=== PATIENT | male | born 1940 | race Caucasian/White ===

== ENCOUNTER 2022-01-01 07:54 | Day surgery (SDC) | payer OTHER ==
[~2022-01-01] VITALS: Ht 177.8 cm; Wt 87.0 kg
[~2022-01-01 07:54] MED LIST: AMIO200 PO; ASPI325 PO; ASPI81CH; ATOR20 PO; CETI5; CLOP75 PO; METO25ER PO; Naprosyn500 MG PO; Percocet 5-3251 EACH PO; SILD25T PO; TADA10TA; Valium5 MG PO; Vitamin C500 M3 PO; Vitamin D2000 UNIT PO
[2022-01-01] MEDS ORDERED: ELIQUIS5 M2 PO (08:20)
[2022-01-01] MEDS ORDERED: PACERONE100 M1 PO (08:20)
[2022-01-01] MEDS ORDERED: LOSA25 PO (08:21)
[2022-01-01] MEDS ORDERED: PRESERVISION A1 EAC1 PO (08:21)
--- NOTE | 2022-01-01 09:36 | NUR ---
0915 DR. METZ TO THE BEDSIDE AND SPOKE TO THE THE PATIENT AND HIS PRE OP.
--- NOTE | 2022-01-01 10:37 | NUR ---
PATIENT RETURNED FROM THE CHIEF INVESTMENT OFFICER IN A RECLINER AND PLACED ON THE MONITOR. CALL LIGHT IN REACH. AT THE BEDSIDE. TR BAND IN PLACE TO THE RIGHT RADIAL WITH 10 ML OF AIR IN THE BAND. BREAKFAST TRAY SERVED. PATIENT HAS NO PAIN, NO BLEEDING AND NO HEMATOMA TO THE RIGT RADIAL SITE.
--- NOTE | 2022-01-01 11:54 | NUR ---
1145 BEGAN REMOVING AIR FROM THE TR BAND. NO BLEEDING NOTED. NO HEMATOMA NOTED. CONTINUE TO MONITOR.
--- NOTE | 2022-01-01 13:00 | NUR ---
PATIENTS TR BAND HAS BEEN FLAT FOR 35 MINUTES. PATIENT UP OOB TO THE RESTROOM. NO BLEEDING NOTED. PATIENT BACK TO THE BEDSIDE ANDDRESSED. REVIEWED DISCHARGE INSTRUCTIONS WITH THE PATIENT AND . COPIES GIVEN. PATIENT WILL RESUME ELIQUIS TOMORROW INSTRUCTED AND FOLLOW UP APPOINTMENT WITH DR. ESPINOZA ON . PIV REMOVED. CATH TIP INTACT. PRESSURE DRESSING APPLIED. NO DIZZINESS NOTED. 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 DISCHARGE WITH ALL BELONINGS VIA WHEELCHAIR.
== END 2022-01-01 12:30 | disposition home or self-care (01) ==
LOC: MHTC 07:54
DX: I25.10 Atherosclerotic heart disease of native coronary artery without angina pectoris (principal); I25.5 Ischemic cardiomyopathy; I47.2 Ventricular tachycardia; I47.1 Supraventricular tachycardia; E78.5 Hyperlipidemia, unspecified; E66.3 Overweight; J44.9 Chronic obstructive pulmonary disease, unspecified; I45.10 Unspecified right bundle-branch block; I11.0 Hypertensive heart disease with heart failure; I50.20 Unspecified systolic (congestive) heart failure; Z79.01 Long term (current) use of anticoagulants; Z87.891 Personal history of nicotine dependence
CPT/HCPCS: 76937; 93454; 99152; 99153; A9270; C1769; C1887; C1894; J1644; J2250; J3010; J7030; J7040; Q9967

== ENCOUNTER 2022-11-15 16:44 | Inpatient (IN) | payer OTHER ==
[~2022-11-15] VITALS: Ht 177.8 cm; Wt 82.9 kg
[~2022-11-15 16:44] MED LIST changes: -CETI5; +CETI5 PO; +ELIQUIS5 M2 PO; +LOSA25 PO; +PACERONE100 M1 PO; +PRESERVISION A1 EAC1 PO
[2022-11-15 17:19] LABS: Hematocrit 39.6 % (37.0-53.0); Hemoglobin 14.1 g/dL (13.5-17.5); Mean Corpuscular HGB 31.2 pg (26.0-34.0); Mean Corpuscular HGB Conc 35.6 g/dL (31.5-36.5); Mean Corpuscular Volume 88 fL (80-100); Mean Platelet Volume 8.8 fL (9.1-12.4); Platelet Count 462 K/mm3 (150-400); RDW Coefficient Variation 13.1 % (11.7-14.2); RDW Standard Deviation 42.5 fL (35.1-46.3); Red Blood Cell Count 4.52 M/mm3 (4.30-5.90); White Blood Cell Count 11.58 K/mm3 (4.00-11.30)
[2022-11-15 17:36] LABS: Albumin, Blood 2.8 g/dL (3.4-5.0); Albumin/Globulin Ratio 0.6 (0.8-1.8); Bilirubin, Total 0.6 mg/dL (0.1-1.0); Bun/Creatinine Ratio 29.1 (12.0-20.0); Calcium, Blood 8.8 mg/dL (8.5-10.1); Creatinine, Blood 1.89 mg/dL (0.60-1.20); Globulin, Blood 4.5 g/dL (2.2-4.0); Potassium, Blood 2.5 mmol/L (3.5-5.5); Total Protein, Blood 7.3 g/dL (6.4-8.2)
[2022-11-15 17:50] LABS: BAND PERCENT MAN 67 % (0-8); BASOPHILS PERCENT MAN 0 % (0-2); EOSINOPHILS ABSOLUTE MAN 0.11 K/mm3 (0.00-0.68); EOSINOPHILS PERCENT MAN 1 % (0-6); LYMPHOCYTES ABSOLUTE MAN 0.23 K/mm3 (0.84-5.20); LYMPHOCYTES PERCENT MAN 2 % (21-46); METAMYELOCYTE ABSOLUTE MAN 0.11 K/mm3 (0.00-0.00); METAMYELOCYTE PERCENT MAN 1 % (0-0); MONOCYTES ABSOLUTE MAN 1.38 K/mm3 (0.16-1.47); MONOCYTES PERCENT MAN 12 % (4-13); NEUTROPHILS ABSOLUTE MAN 9.72 K/mm3 (1.96-9.15); SEG NEUTROPHILS PERCENT MAN 17 % (41-73); TOTAL CELLS COUNTED 100
[2022-11-15 20:47] VITALS: BP 107/57
[2022-11-15] MEDS ORDERED: FINA5 PO (20:56)
[2022-11-16] VITALS (7 sets, daily range): BP systolic 98–111; BP diastolic 54–61
[2022-11-16 01:13] LABS: Stool Occult Blood Guaiac 1 Pos (Neg)
[2022-11-16 01:54] LABS: Campylobacter Sp Not Detected (NOT DETECT)
[2022-11-16 01:55] LABS: Adenovirus F 40/41 Not Detected (NOT DETECT); Astrovirus Not Detected (NOT DETECT); Cryptosporidium Not Detected (NOT DETECT); Cyclospora Cayetanensis Not Detected (NOT DETECT); E. Coli O157 Not Detected (NOT DETECT); Entamoeba Histolytica Not Detected (NOT DETECT); Enteroaggregative E. coli-EAEC Not Detected (NOT DETECT); Enteropathogenic E. coli-EPEC Not Detected (NOT DETECT); Enterotoxigenic E. coli-ETEC Not Detected (NOT DETECT); Giardia Lamblia Not Detected (NOT DETECT); Norovirus GI/GII Not Detected (NOT DETECT); Plesiomonas Shigelloides Not Detected (NOT DETECT); Rotavirus A Not Detected (NOT DETECT); Salmonella Sp Not Detected (NOT DETECT); Sapovirus Not Detected (NOT DETECT); Shiga Toxin-prod E. coli-STEC Not Detected (NOT DETECT); Shigella/Enteroin E. coli-EIEC Not Detected (NOT DETECT); Vibrio Cholerae Not Detected (NOT DETECT); Vibrio Sp Not Detected (NOT DETECT); Yersinia Enterocolitica Not Detected (NOT DETECT)
[2022-11-16 03:44] LABS: Hematocrit 35.7 % (37.0-53.0); Hemoglobin 12.5 g/dL (13.5-17.5); Mean Corpuscular HGB 31.3 pg (26.0-34.0); Mean Corpuscular Volume 90 fL (80-100); Mean Platelet Volume 8.9 fL (9.1-12.4); Platelet Count 373 K/mm3 (150-400); RDW Coefficient Variation 13.1 % (11.7-14.2); RDW Standard Deviation 43.3 fL (35.1-46.3); Red Blood Cell Count 3.99 M/mm3 (4.30-5.90); White Blood Cell Count 12.23 K/mm3 (4.00-11.30)
[2022-11-16 04:01] LABS: Albumin, Blood 2.3 g/dL (3.4-5.0); Albumin/Globulin Ratio 0.6 (0.8-1.8); Bilirubin, Total 0.4 mg/dL (0.1-1.0); Bun/Creatinine Ratio 31.3 (12.0-20.0); Calcium, Blood 8.2 mg/dL (8.5-10.1); Creatinine, Blood 1.79 mg/dL (0.60-1.20); Globulin, Blood 3.7 g/dL (2.2-4.0); Potassium, Blood 2.6 mmol/L (3.5-5.5)
[2022-11-16 04:47] LABS: BAND PERCENT MAN 43 % (0-8); BASOPHILS PERCENT MAN 0 % (0-2); EOSINOPHILS PERCENT MAN 0 % (0-6); LYMPHOCYTES ABSOLUTE MAN 0.24 K/mm3 (0.84-5.20); LYMPHOCYTES PERCENT MAN 2 % (21-46); MONOCYTES ABSOLUTE MAN 2.07 K/mm3 (0.16-1.47); MONOCYTES PERCENT MAN 17 % (4-13); NEUTROPHILS ABSOLUTE MAN 9.78 K/mm3 (1.96-9.15); PLASMA CELL ABSOLUTE MAN 0.12 K/mm3 (0.00-0.00); PLASMA CELLS PERCENT MAN 1 % (0-0); SEG NEUTROPHILS PERCENT MAN 37 % (41-73); TOTAL CELLS COUNTED 100
--- NOTE | 2022-11-16 05:20 | NUR ---
SHIFT SUMMARY ASSUMED CARE OF PT AT 2030. PT IS A/OX4. [place]. HEART SOUNDS REGULAR. PT HAS A PACER. LUNG SOUNDS CLEAR. PT STILL HAVING DIARRHEA. PT A 1P SBA FOR LINE CONTROL. NO ACUTE EVENTS, PT SLEPT MOST OF THE NOC. PT EDUCATED ABOUT HOSPITAL SMOKING POLICY.
--- NOTE | 2022-11-16 09:31 | NUR ---
AM NOTES: PT C/O NAUSEA THIS MORNING AT SHIFT CHANGE PT STATED TESS HELPED WITH HIS NAUSEA DIDNT EAT MUCH FOR BREAKFAST, ABLE TO KEEP MEDS DOWN. POTASSIUM 3RD BAG NOW INFUSING ALONG WITH LR AT 150 MLS/HR. PT STILL REPORTS HAVING DIARRHEA, NO OBVIOUS BLOOD IN THE STOOL PER NOC RN HEM OCCULT CAME BACK POSITIVE ALSO DISCUSSED WITH THE PROVIDER SINCE PT WAS ALSO ON BLOOD THINNER, OKAY TO GIVE ELIQUIS AND TO MONITOR POSS GI BLEED. DAUGHTER ROS CALLED AND WAS GIVEN AN UPDATE ABOUT THE PT. TO ORDER RENAL FUNCTION PANEL AFTER POTASSIUM INFUSION IS DONE. VITALS HRR PACED AT 60'S, SBP 100'S, SATS ABOVE 95% ON RA, AFEBRILE. PT DENIES CHEST PAIN/PRESSURE. NO OTHER ISSUES OF THIS TIME. PT CURRENTLY GETTING IN THE SHOWER. WILL CONTINUE TO MONITOR
[2022-11-16 13:55] LABS: Albumin, Blood 2.2 g/dL (3.4-5.0); Anion Gap 9 mmol/L (6-16); Blood Urea Nitrogen 53 mg/dL (8-24); Bun/Creatinine Ratio 36.3 (12.0-20.0); CO2, Blood 19 mmol/L (21-32); Calcium, Blood 8.3 mg/dL (8.5-10.1); Chloride, Blood 109 mmol/L (98-108); Creatinine, Blood 1.46 mg/dL (0.60-1.20); Glomerular Filtration Rate 47 (60-); Glucose, Blood 153 mg/dL (70-99); Phosphorus, Blood 0.9 mg/dL (2.5-4.9); Sodium, Blood 137 mmol/L (136-145)
--- NOTE | 2022-11-16 18:32 | NUR ---
PT SUMMARY: SEE AM NOTES. REPEAT RENAL FUNCTION PANEL RESULT CAME BACK WITH POTASSIUM AT 3.0 AND CRITICALLY LOW PHOSPHORUS AT 0.9 CALLED INTO PROVIDER AND GOT AN ORDER FOR KPHOS 30MMOL X1 IV GTT STILL INFUSING AT THIS TIME ALONG WITH LR AT 150MLS/HR. DISCUSSED WITH FAMILY AT THE BEDSIDE ABOUT PLAN OF CARE THAT PT IS NOT DISCHARGING TODAY WILL REASSESS TOMORROW. VITALS HAS BEEN STABLE. PT DENIES ANY PAIN/PRESSURE. MILD NAUSEA RELIEVED BY POPSICLE AND PT STARTING TO TOLERATE PO INTAKE. NO EMESIS REPORTED. HAD COUPLE EPISODES OF DIARRHEA GREEN BROWN IN COLOR NO BLOODY STOOLS NOTED. PT HAS BEEN AMBULATING TO THE BATHROOM. NO OTHER ISSUES ENCOUNTERED AT THIS TIME, WILL REPORT TO ONCOMING SHIFT. PT EDUCATED ABOUT IGNITION SOURCES, RISK OF INJURY AND SMOKING POLICY.
[2022-11-16 20:30] LABS: Albumin, Blood 2.2 g/dL (3.4-5.0); Anion Gap 9 mmol/L (6-16); Blood Urea Nitrogen 47 mg/dL (8-24); Bun/Creatinine Ratio 35.3 (12.0-20.0); CO2, Blood 20 mmol/L (21-32); Calcium, Blood 8.5 mg/dL (8.5-10.1); Chloride, Blood 108 mmol/L (98-108); Creatinine, Blood 1.33 mg/dL (0.60-1.20); Glomerular Filtration Rate 53 (60-); Glucose, Blood 140 mg/dL (70-99); Sodium, Blood 137 mmol/L (136-145)
[2022-11-17 03:44] VITALS: BP 103/56
[2022-11-17 04:52] LABS: Hemoglobin 11.4 g/dL (13.5-17.5); Mean Corpuscular HGB 31.4 pg (26.0-34.0); Mean Corpuscular HGB Conc 35.6 g/dL (31.5-36.5); Mean Corpuscular Volume 88 fL (80-100); Mean Platelet Volume 8.7 fL (9.1-12.4); Platelet Count 363 K/mm3 (150-400); RDW Coefficient Variation 13.2 % (11.7-14.2); RDW Standard Deviation 43.2 fL (35.1-46.3); Red Blood Cell Count 3.63 M/mm3 (4.30-5.90); White Blood Cell Count 10.95 K/mm3 (4.00-11.30)
[2022-11-17 05:06] LABS: Anion Gap 7 mmol/L (6-16); Blood Urea Nitrogen 37 mg/dL (8-24); Bun/Creatinine Ratio 31.6 (12.0-20.0); CO2, Blood 21 mmol/L (21-32); Calcium, Blood 7.8 mg/dL (8.5-10.1); Chloride, Blood 108 mmol/L (98-108); Creatinine, Blood 1.17 mg/dL (0.60-1.20); Glomerular Filtration Rate 61 (60-); Glucose, Blood 119 mg/dL (70-99); Magnesium, Blood 1.8 mg/dL (1.6-2.4); Potassium, Blood 2.7 mmol/L (3.5-5.5); Sodium, Blood 136 mmol/L (136-145)
--- NOTE | 2022-11-17 05:25 | NUR ---
SHIFT SUMMARY: PATIENT A&OX4. [place], WEARS HEARING AID TO BILAT EARS. CALM, PLEASANT AND COOPERATIVE c CARE. PATIENT REPEAT RENAL FUNCTION RESULT WAS DRAWN AT 1999 CAME BACK WITH POTASSIUM OF 3.0, PHOSPHORUS IS IMPROVING FROM 0.9 TO 2.0. RECEIVED OT DOSE OF IV KPHOS AND SCHEDULED REPEAT RENAL FUNCTION IN AM. PATIENT DENIES CP/PRESSURE, SOB, N/V. ON TELE, ATRIAL PACED HR IN THE LOW 60'S BPM. PATIENT HAD ONE EPISODE OF INCONTINENCE LARGE BROWN LIQUID STOOL, MYRIAM CARE AND ATTENDS CHANGED. PATIENT SLEPT WELL T/O SHIFT. RECEIVED SCHEDULED MEDS PER EMAR. PIV TO L FOREARM INFUSING LR AT 150 MLS/HR, R FOREARM SALINE LOCKED. VITAL SIGNS REVIEWED. CALL LIGHT IN REACH. PATIENT EDUCATED ON NON SMOKING CAMPUS AND THE RISK OF INJURY WELL IGNITION SOURCES. PATIENT STATED UNDERSTANDING AND NO FURTHER QUESTIONS AT THIS TIME.
--- NOTE | 2022-11-17 05:41 | NUR ---
CALLED DR. RODRIGUEZ TO REPORT PATIENT POTASSIUM 2.7 LAB RESULT THIS AM. PER DR. RODRIGUEZ HE WILL REVIEWS PATIENT CHART.
[2022-11-17 05:57] LABS: BAND PERCENT MAN 16 % (0-8); BASOPHILS PERCENT MAN 0 % (0-2); EOSINOPHILS ABSOLUTE MAN 0.21 K/mm3 (0.00-0.68); EOSINOPHILS PERCENT MAN 2 % (0-6); LYMPHOCYTES ABSOLUTE MAN 0.43 K/mm3 (0.84-5.20); LYMPHOCYTES PERCENT MAN 4 % (21-46); MONOCYTES ABSOLUTE MAN 1.75 K/mm3 (0.16-1.47); MONOCYTES PERCENT MAN 16 % (4-13); NEUTROPHILS ABSOLUTE MAN 8.54 K/mm3 (1.96-9.15); SEG NEUTROPHILS PERCENT MAN 62 % (41-73); TOTAL CELLS COUNTED 100
[2022-11-17 07:42] VITALS: BP 105/61
--- NOTE | 2022-11-17 10:24 | NUR ---
AM NOTES: PT DENIES ANY PAIN OR DISCOMFORT THIS MORNING, REPORTED ANOTHER LOOSE BM THIS MORNING, NO BLOODY STOOLS. PT ATE BREAKFAST WITH NO ISSUES, DENIES NAUSEA/VOMITING. KPHOS GTT CURRENTLY INFUSING LAST POTASSIUM STILL LOW AT 2.7, LR AT 150MLS/HR. PT C/O MILD WEAKNESS BUT IS ABLE TO AMBULATE SBA TO THE BATHROOM NO ISSUES. VITALS HRR PACED AT 60'S, SBP 100'S, SATS ABOVE 92% ON RA, AFEBRILE. CURRENTLY IN THE ROOM WITH SOME QUESTIONS WAS GIVEN UPDATE REGARDING PT. AWAITING FOR PROVIDER TO ROUND, PT RESTING COMFORTABLY IN BED AT THIS TIME, CALLS APPROPRIATELY, WILL CONTINUE TO MONITOR
[2022-11-17 11:19] VITALS: BP 98/56
[2022-11-17 12:39] LABS: Anion Gap 6 mmol/L (6-16); Blood Urea Nitrogen 33 mg/dL (8-24); Bun/Creatinine Ratio 29.7 (12.0-20.0); CO2, Blood 21 mmol/L (21-32); Calcium, Blood 8.3 mg/dL (8.5-10.1); Chloride, Blood 111 mmol/L (98-108); Creatinine, Blood 1.11 mg/dL (0.60-1.20); Glomerular Filtration Rate 65 (60-); Glucose, Blood 143 mg/dL (70-99); Phosphorus, Blood 2.7 mg/dL (2.5-4.9); Potassium, Blood 3.3 mmol/L (3.5-5.5); Sodium, Blood 138 mmol/L (136-145)
[2022-11-17 16:08] VITALS: BP 106/57
[2022-11-17 16:59] LABS: Anion Gap 5 mmol/L (6-16); Blood Urea Nitrogen 31 mg/dL (8-24); Bun/Creatinine Ratio 25.6 (12.0-20.0); CO2, Blood 23 mmol/L (21-32); Calcium, Blood 8.4 mg/dL (8.5-10.1); Chloride, Blood 109 mmol/L (98-108); Creatinine, Blood 1.21 mg/dL (0.60-1.20); Glomerular Filtration Rate 59 (60-); Glucose, Blood 147 mg/dL (70-99); Phosphorus, Blood 1.9 mg/dL (2.5-4.9); Potassium, Blood 3.1 mmol/L (3.5-5.5); Sodium, Blood 137 mmol/L (136-145)
--- NOTE | 2022-11-17 18:04 | NUR ---
PT SUMMARY: PT REPORT 4-5 BOWEL MOVEMENTS FOR THE SHIFT IMMODIUM WAS GIVEN X1, REPEAT RENAL FUNCTION PANEL RESULTS POTASSIUM 3.1 PHOSPHORUS 1.9 CALLED PROVIDER AND MADE AWARE ORDER FOR ANOTHER 30MMOL KPHOS BAG THEN REPEAT RENAL FUNCTION PANEL AFTER. PT DENIES NAUSEA AND VOMITING BUT HAS SOME GAS PAINS AT TIMES/ CRAMPS. PT WAS ABLE TO AMBULATE AROUND THE UNIT WITH NO ISSUES PT STATED HE FEELS LESS WEAKER. FAMILY AT THE BEDSIDE WAS GIVEN UPDATE ABOUT THE PT. VITALS HAS BEEN STABLE. NO OTHER ISSUES ENCOUNTERED PT ABLE TO MAKE NEEDS KNOWN, WILL REPORT TO ONCOMING SHIFT
[2022-11-17 19:34] VITALS: BP 111/61
[2022-11-18 00:21] LABS: Albumin, Blood 1.9 g/dL (3.4-5.0); Anion Gap 5 mmol/L (6-16); Blood Urea Nitrogen 26 mg/dL (8-24); Bun/Creatinine Ratio 23.4 (12.0-20.0); CO2, Blood 23 mmol/L (21-32); Calcium, Blood 7.9 mg/dL (8.5-10.1); Chloride, Blood 110 mmol/L (98-108); Creatinine, Blood 1.11 mg/dL (0.60-1.20); Glomerular Filtration Rate 65 (60-); Glucose, Blood 127 mg/dL (70-99); Phosphorus, Blood 3.2 mg/dL (2.5-4.9); Potassium, Blood 3.3 mmol/L (3.5-5.5); Sodium, Blood 138 mmol/L (136-145)
[2022-11-18 04:53] VITALS: BP 109/60
[2022-11-18 06:04] LABS: Hematocrit 32.6 % (37.0-53.0); Hemoglobin 11.6 g/dL (13.5-17.5); Mean Corpuscular HGB 31.3 pg (26.0-34.0); Mean Corpuscular HGB Conc 35.6 g/dL (31.5-36.5); Mean Corpuscular Volume 88 fL (80-100); Mean Platelet Volume 8.9 fL (9.1-12.4); Platelet Count 351 K/mm3 (150-400); RDW Coefficient Variation 13.6 % (11.7-14.2); RDW Standard Deviation 43.8 fL (35.1-46.3); Red Blood Cell Count 3.71 M/mm3 (4.30-5.90); White Blood Cell Count 14.16 K/mm3 (4.00-11.30)
[2022-11-18 06:30] LABS: Bun/Creatinine Ratio 24.3 (12.0-20.0); Calcium, Blood 8.2 mg/dL (8.5-10.1); Creatinine, Blood 1.03 mg/dL (0.60-1.20); Magnesium, Blood 1.9 mg/dL (1.6-2.4); Phosphorus, Blood 2.2 mg/dL (2.5-4.9); Potassium, Blood 3.2 mmol/L (3.5-5.5)
--- NOTE | 2022-11-18 06:33 | NUR ---
SHIFT SUMMARY MED WITH TELE STATUS PATIENT ALERT AND ORIENTED, ABLE TO MAKE NEEDS KNOWN TO STAFF. VITALS STABLE, PATIENT ON RA WITH O2 SAT >90%. PATIENT ABLE TO SLEEP FOR MAJORITY OF SHIFT. NO EPISODES OF DIARRHEA, NAUSEA, OR ABDOMINAL PAIN NOTED. FLUIDS INFUSING PER EMAR. NO OTHER CHANGES, WILL REPORT TO DAY SHIFT RN.
[2022-11-18 06:34] LABS: BAND PERCENT MAN 10 % (0-8); BASOPHILS PERCENT MAN 0 % (0-2); EOSINOPHILS ABSOLUTE MAN 0.14 K/mm3 (0.00-0.68); EOSINOPHILS PERCENT MAN 1 % (0-6); LYMPHOCYTES % ATYPICAL MANUAL 1 % (0-0); LYMPHOCYTES PERCENT MAN 4 % (21-46); MONOCYTES ABSOLUTE MAN 1.69 K/mm3 (0.16-1.47); MONOCYTES PERCENT MAN 12 % (4-13); NEUTROPHILS ABSOLUTE MAN 11.61 K/mm3 (1.96-9.15); SEG NEUTROPHILS PERCENT MAN 72 % (41-73); TOTAL CELLS COUNTED 100
[2022-11-18 07:25] VITALS: BP 112/61
--- NOTE | 2022-11-18 07:34 | NUR ---
FIRE RISK: PATIENT EDUCATED REGARDING IGNTION SOURCES AND RISK OF INJURY WHILE OXYGEN IS IN USE. PATIENT DENIES SMOKING AND PATIENTVERBALIZE UNDERSTANDING.
[2022-11-18 16:08] VITALS: BP 111/65
--- NOTE | 2022-11-18 16:09 | NUR ---
TRANFER: REPORT CALLED TO SUZETTE DIAZ. PT TRANSFERRED VIA WHEELCHAIR WITH ALL BELONINGS TO ROOM 329 @1600
--- NOTE | 2022-11-18 17:03 | NUR ---
PT TRANSFERRED FROM PCU 19 TO ROOM 329 AT 1625, WHEELCHAIR TO BED, SBA TX. IVF INFUSING LR AT 75/HR. ORIENTED TO ROOM SET UP AND SAFETY. ENC FLUIDS ESPECIALLY JUICE TO MAINTAIN HYDRATION AND ELECTROLYNTS.
--- NOTE | 2022-11-18 18:44 | NUR ---
SUMMARY- PT A/O X4. TOLERATING FOOD AND FLUIDS. LR INFUSING AT 75ML/HR. USES CALL LIGHT APPROPRIATELY. ABD DISTENDED AND "BLOATED". PLAN TO NOTIFY MD AND OBTAIN ANTIGAS. PT HAD ONE REPORTED BM TODAY, RN STATED IT LOOSE, SMALL BROWN. WILL F/U WITH LABS IN THE AM. WILL REPORT TO NOC RN.
[2022-11-18 19:26] VITALS: BP 104/66
[2022-11-19 04:21] VITALS: BP 115/63
[2022-11-19 05:05] LABS: Hematocrit 31.5 % (37.0-53.0); Hemoglobin 11.2 g/dL (13.5-17.5); Mean Corpuscular HGB 31.4 pg (26.0-34.0); Mean Corpuscular HGB Conc 35.6 g/dL (31.5-36.5); Mean Corpuscular Volume 88 fL (80-100); Mean Platelet Volume 8.3 fL (9.1-12.4); Platelet Count 318 K/mm3 (150-400); RDW Coefficient Variation 13.6 % (11.7-14.2); RDW Standard Deviation 43.9 fL (35.1-46.3); Red Blood Cell Count 3.57 M/mm3 (4.30-5.90); White Blood Cell Count 11.88 K/mm3 (4.00-11.30)
[2022-11-19 05:28] LABS: BAND PERCENT MAN 2 % (0-8); BASOPHILS PERCENT MAN 0 % (0-2); EOSINOPHILS ABSOLUTE MAN 0.11 K/mm3 (0.00-0.68); EOSINOPHILS PERCENT MAN 1 % (0-6); LYMPHOCYTES % ATYPICAL MANUAL 2 % (0-0); LYMPHOCYTES ABSOLUTE MAN 0.47 K/mm3 (0.84-5.20); LYMPHOCYTES PERCENT MAN 2 % (21-46); MONOCYTES PERCENT MAN 11 % (4-13); NEUTROPHILS ABSOLUTE MAN 9.97 K/mm3 (1.96-9.15); SEG NEUTROPHILS PERCENT MAN 82 % (41-73); TOTAL CELLS COUNTED 100
[2022-11-19 05:44] LABS: Bun/Creatinine Ratio 18.8 (12.0-20.0); Creatinine, Blood 1.01 mg/dL (0.60-1.20); Potassium, Blood 3.3 mmol/L (3.5-5.5)
--- NOTE | 2022-11-19 06:26 | NUR ---
Shift Summary Pt had 2 loose watery BM early in the shift and one this AM. Gave PRN immodium once last night. Gave PRN Simethicone for bloating last night, abdomen feels less tight and less distended this AM. Pt c/o some mild pain in his abdomen this AM. AOx4, calls appropriatly to use the BR, slept well t/o most of the night. Rcving LR at 75.
[2022-11-19 08:06] VITALS: BP 115/57
--- NOTE | 2022-11-19 13:55 | NUR ---
RN NOTE MR ZAMORA HAS SLOW, SOMETIMES MUMBLED SPEACH. ORIENTATED BUT OCCASIONALLY FORGETFUL. UP TO THE BATHROOM NOW BUT HAS NOT HAD DIARRHEA PRIOR ON THIS SHIFT. DENIES PAIN APART FROM GENERALISED BODY ACHES. DOES C/O DIZZYNESS WHEN HE FIRST STANDS AND SOME UNSTEADINESS. ON TELEMETRY, NO CALLS FROM DENTAL DIRECTOR. AND DAUGHTER AT BEDSIDE. PT AND FAMILY VERBALISED UNDERSTADNING OF EDUCATION RE IGNITION SOURCES AND RISK OF INJURY WHILE OXYGEN IN USE. PT DENIES SMOKING. RISK ASSESSMENT DONE ON HOURLY ROUNDS. BED LOW, CALL LIGHT IN REACH.
[2022-11-19 15:11] VITALS: BP 107/66
[2022-11-19 19:11] VITALS: BP 112/59
--- NOTE | 2022-11-19 19:50 | NUR ---
SHIFT SUMMARY SEE PRIOR RN NOTE. MR ZAMORA JUST HAD ONE EPISODE OF LOOSE STOOL TODAY, LOOKED LIKE "SOUP" WITH FOOD PARTICLES IN IT. NO C/O NAUSEA/ABDOMIAL PAIN. S/B ASSIST TO BR, DIZZY ON INITIALLY STANDING UP BUT STEADY GAIT ONCE AMBULATING. NO CALLS FROM BRAZING MACHINE FEEDER. BED LOW, CALL LIGHT IN REACH.
[2022-11-20 03:07] VITALS: BP 120/60
--- NOTE | 2022-11-20 04:21 | NUR ---
SHIFT SUMMARY 82 YR M ADMITTED ON 11/18/22 FOR HYPOKALEMIA SECONDARY TO DIARRHEA. FULL CODE. NO ACUTE CHANGES THIS SHIFT. PT HAD 1 EPISODE OF LOOSE STOOL THIS SHIFT THAT LOOKED THOUGH THERE WERE WHOLE PILLS IN IT. HE HAS HAD NO C/O PAIN OR DISCOMFORT THIS SHIFT. HE AMBULATES INDEPENDANTLY TO BATHROOM AND HAS A STEADY GAIT. AT BEDSIDE AT BEGINNING OF SHIFT THEN LEFT TO GO HOME AND GET SOME REST. PT IS PLEASANT AND COOPERATIVE WITH CARE. PT EDUCATED ON IGNITION SOURCES AND FIRE SAFETY WHEN OXYGEN IS IN USE.
[2022-11-20 05:16] LABS: BASOPHILS ABSOLUTE AUTO 0.06 K/mm3 (0.00-0.23); BASOPHILS PERCENT AUTO 0 % (0-2); EOSINOPHILS ABSOLUTE AUTO 0.15 K/mm3 (0.00-0.68); EOSINOPHILS PERCENT AUTO 1 % (0-6); Hematocrit 31.2 % (37.0-53.0); IMMATURE GRAN ABSOLUTE AUTO 0.17 K/mm3 (0.00-0.10); IMMATURE GRAN PERCENT AUTO 1 % (0-1); LYMPHOCYTES ABSOLUTE AUTO 0.69 K/mm3 (0.84-5.20); LYMPHOCYTES PERCENT AUTO 5 % (21-46); MONOCYTES ABSOLUTE AUTO 1.46 K/mm3 (0.16-1.47); MONOCYTES PERCENT AUTO 10 % (4-13); Mean Corpuscular HGB 31.3 pg (26.0-34.0); Mean Corpuscular HGB Conc 35.3 g/dL (31.5-36.5); Mean Corpuscular Volume 89 fL (80-100); Mean Platelet Volume 8.5 fL (9.1-12.4); NEUTROPHILS ABSOLUTE AUTO 12.76 K/mm3 (1.96-9.15); NEUTROPHILS PERCENT AUTO 84 % (41-73); Platelet Count 329 K/mm3 (150-400); RDW Coefficient Variation 13.7 % (11.7-14.2); RDW Standard Deviation 44.6 fL (35.1-46.3); Red Blood Cell Count 3.51 M/mm3 (4.30-5.90); White Blood Cell Count 15.29 K/mm3 (4.00-11.30)
[2022-11-20 06:17] LABS: Albumin, Blood 1.7 g/dL (3.4-5.0); Anion Gap 6 mmol/L (6-16); Blood Urea Nitrogen 16 mg/dL (8-24); Bun/Creatinine Ratio 16.2 (12.0-20.0); CO2, Blood 23 mmol/L (21-32); Chloride, Blood 110 mmol/L (98-108); Creatinine, Blood 0.99 mg/dL (0.60-1.20); Glomerular Filtration Rate 75 (60-); Glucose, Blood 98 mg/dL (70-99); Potassium, Blood 3.5 mmol/L (3.5-5.5); Sodium, Blood 139 mmol/L (136-145)
[2022-11-20 07:47] VITALS: BP 113/62
--- NOTE | 2022-11-20 12:11 | NUR ---
"Spiritual Care visit | Nurse request Pt. is awake and sitting in a chair awaiting discharge. Pt. is pleasant, but spouse who is present is unsettled about her own health. Facilitate a life review and listen with empathy and a calming presence. Pts. daughter is also present and engages in conversation. WHile Pt. is verbalizing his anticpated discharge home, spouse continues to display evidence of anxiety. Prayed with Pt. and the family. Spouse displayed evidence of having less anxiety. Pt. verbalized gratitude for the spiritual care visit."
[2022-11-20] MEDS ORDERED: LOPE2C PO (13:49)
[2022-11-20] MEDS ORDERED: POTCHL20ER PO (13:50)
--- NOTE | 2022-11-20 16:40 | NUR ---
DISCHARGE SUMMARY ALERT, ORIENTED, [place]. SPOUSE AT BEDSIDE BUT ANXIOUS AND TEARFUL. PLACED SPIRITUAL CARE CONSULT FOR SUPPORTIVE VISIT AND PRAYER FOR SPOUSE WHO EXPRESSED FEELING OVERWHELM AND ANXIETY. PATIENT SBA ASSIST TO BATHROOM, ONE LOOSE STOOL THIS SHIFT. TOLERATING REGULAR DIET DIET. DENIES ABD PAIN. REPORTS FEELING SLIGHTLY UNSTEADY ON FEET. VSS. DR MENDIETA MET WITH PATIENT AND SPOUSE AT BEDSIDE. ORDERS WERE GIVEN FOR DISCHARGE. DISCHARGE EDUCATION WAS GIVEN ON NEW MEDS, AND FOLLOW UP APPT WITH DR KOROMA AT [facility]. IV'S DC'D WNL. PATIENT'S ADULT DAUGHTER WAS PRESENT AT DISCHARGE TO ASSIST WITH TRANSITION OF CARE. PATIENT LEFT UNIT AT 1530 VIA WHEELCHAIR FOR HOME WITH SPOUSE AND DAUGHTER.
== END 2022-11-20 16:32 | disposition home or self-care (01) | DRG 641 ==
LOC: ER 16:44 → PCU 16:45 → MEDS 11-18 16:26 → ENPENDDIS 11-20 11:59 → MEDS 11-20 16:32
PROVIDERS: Family Medicine; Internal Medicine; Student in an Organized Health Care Education/Training Program; ADMIT Student in an Organized Health Care Education/Training Program
DX: E87.6 Hypokalemia (principal); N17.9 Acute kidney failure, unspecified; I48.92 Unspecified atrial flutter; A08.4 Viral intestinal infection, unspecified; E86.0 Dehydration; E78.00 Pure hypercholesterolemia, unspecified; I25.10 Atherosclerotic heart disease of native coronary artery without angina pectoris; E83.39 Other disorders of phosphorus metabolism; Z95.5 Presence of coronary angioplasty implant and graft; Z98.890 Other specified postprocedural states; Z79.01 Long term (current) use of anticoagulants; Z79.899 Other long term (current) drug therapy; Z95.0 Presence of cardiac pacemaker; Z98.42 Cataract extraction status, left eye; Z87.891 Personal history of nicotine dependence; Z85.831 Personal history of malignant neoplasm of soft tissue
CPT/HCPCS: 36415; 80048; 80053; 80069; 82272; 83690; 83735; 84100; 85025; 87177; 87209; 87507; 93005; 93010; 96361; 96374; 96375; 96376; 99284-25; A9270; G0378; J2405; J3480; J7030; J7040; J7050; J7060; J7120